=== PATIENT | female | born 1970 | race Caucasian/White ===

== ENCOUNTER → 2016-07-02 | Outpatient (CLI) | payer OTHER ==
--- NOTE | 2016-07-02 09:29 | KCIC ---
CT sinus without contrast Indication: Chronic sinusitis. Axial imaging through the paranasal sinuses was performed without contrast. Sagittal and coronal reformations were also performed. PQRS STATEMENT One or more of the following individualized dose reduction techniques were utilized for this study: 1.Automated exposure control. 2.Adjustment of the mA and/orkVaccording to patient size. 3.Use of iterative reconstruction technique. No prior studies are available for comparison. The frontal sinuses are clear. Ethmoid air cells and sphenoid sinus are clear. Trace mucosal thickening of bilateral maxillary sinuses is noted. There are no air-fluid levels. The ostiomeatal complexes are patent bilaterally. There is slight nasal septal deviation towards the right. The mastoid air cells are clear. Impression: Mild maxillary sinus mucosal disease. The study is otherwise unremarkable. Electronically signed by: Roberto Gabriel MD (Jul 02, 2016 09:27:59)
== END | disposition home or self-care (01) ==
LOC: KCIC CT 08:46
PROVIDERS: ATTEND Otolaryngology
DX: J32.9 Chronic sinusitis, unspecified (principal)
CPT/HCPCS: 70486

== ENCOUNTER → 2017-03-10 | Outpatient (CLI) | payer OTHER ==
[2016-09-29 11:00] VITALS: BP 126/78
[~2017-03-10] MED LIST: CETI10TA22 PO; CIPR500T94 PO; FLUT9.9S NS; METR500T PO; MULT1TAB52 PO
--- NOTE | 2017-03-11 09:12 | KCIC ---
DATE: 03/10/2017 EXAM: MAMMO TRAVON SCREENING BILATERAL HISTORY: Routine screening. COMPARISON: 10/03/2015 and 01/30/2012. This study was interpreted with the benefit of Computerized Aided Detection (CAD). FINDINGS: The parenchymal pattern is stable. Benign vascular and parenchymal calcifications are noted. No spiculated mass or malignant appearing microcalcifications are seen. Breast Density: HETERO The breast parenchyma is heterogeneously dense, which could reduce sensitivity of mammography. Breast parenchyma level C. IMPRESSION: No mammographic features suspicious for malignancy are identified. BI-RADS CATEGORY: 2 BENIGN FINDING(S) RECOMMENDED FOLLOW-UP: 12M 12 MONTH FOLLOW-UP PQRS compliance statement: Patient information was entered into a reminder system with a target due date 03/10/2018 for the next mammogram. Mammography is a sensitive method for finding small breast cancers, but it does not detect them all and is not a substitute for careful clinical examination. A negative mammogram does not negate a clinically suspicious finding and should not result in delay in biopsying a clinically suspicious abnormality. "Our facility is accredited by the [employer] Mammography Program."
== END | disposition home or self-care (01) ==
LOC: KCIC MAMMO 17:57
PROVIDERS: ATTEND Nurse Practitioner Family
DX: Z12.31 Encounter for screening mammogram for malignant neoplasm of breast (principal)
CPT/HCPCS: 77063; G0202; 77067

== ENCOUNTER → 2017-10-15 | Outpatient (CLI) | payer OTHER | END | disposition home or self-care (01) | LOC: US 09:06 | DX: R10.2 Pelvic and perineal pain (principal); J32.9 Chronic sinusitis, unspecified | CPT/HCPCS: 76830; 76856 ==

== ENCOUNTER → 2018-07-08 | Outpatient (CLI) | payer OTHER ==
[2016-09-29 11:00] VITALS: BP 126/78
--- NOTE | 2018-07-08 14:46 | KCIC ---
MR of the left knee HISTORY: Left knee pain with weightbearing at the joint line. Pain for 3 months after episode of prolonged activity. TECHNIQUE: Routine multiplanar sequences are obtained. FINDINGS: No evidence of medial meniscal tear. No evidence of lateral meniscal tear. Anterior and posterior cruciate ligaments are intact. Mild fluid tracking along the medial collateral ligament, which appears intrinsically intact. Iliotibial band unremarkable. Fibular collateral ligament, biceps femoris tendon and popliteus tendon are intact. Extensor mechanism intact. Trace joint effusion. Mild chondromalacia at the medial patella. Medial and lateral compartment articular cartilage appears intact. Minimal subchondral marrow edema at the medial joint. No aggressive bone destruction. No acute fracture. Small Medina's cyst. Small cyst or ganglion identified along the posterior medial femoral metaphysis, around the medial gastrocnemius tendon insertion. IMPRESSION: 1. No meniscal tear or internal derangement. 2. Mild chondromalacia of the patella. 3. Minimal subchondral marrow edema at the medial joint, likely degenerative, could represent small marrow contusions. 4. Mild edema/fluid along the medial knee. Electronically signed by: Chad Zepeda MD (07/08/2018 2:43 PM) [facility]
--- NOTE | 2018-07-08 19:24 | KCIC ---
Bilateral digital screening mammograms with 3-D tomosynthesis: Reason for examination: Routine screening. Comparison is made to previous studies dated 03/10/2017 and 10/03/2015. Bilateral mammograms in CC and oblique projections were obtained with 2-D imaging and 3-D tomosynthesis imaging on a Siemens Inspiration unit and reviewed on the workstation. Interpretation was made with the benefit of CAD. The skin and nipples show no abnormalities. No abnormal axillary lymph nodes are seen. The breast parenchyma shows scattered fatty and fibroglandular density. (Breast density: Category B.) There are no dominant masses, suspicious calcifications or architectural distortion. Impression: No evidence of malignancy. Recommend routine screening. BI-RAD Category 1: Negative. "Our facility is accredited by the [employer] Mammography Program." This patient's information has been entered into a reminder system for the patient to be notified with the results of her examination and a target date for the next mammogram. Electronically signed by: Nika River MD (07/08/2018 7:21 PM) [id number]
== END | disposition home or self-care (01) ==
LOC: KCIC MRI 13:50
PROVIDERS: ATTEND Nurse Practitioner Family
DX: Z12.31 Encounter for screening mammogram for malignant neoplasm of breast (principal); M22.42 Chondromalacia patellae, left knee; M71.22 Synovial cyst of popliteal space [Baker], left knee; R60.0 Localized edema
CPT/HCPCS: 73721; 77063; 77067

== ENCOUNTER → 2019-01-22 | Outpatient (CLI) | payer OTHER ==
[2016-09-29 11:00] VITALS: BP 126/78
[~2019-01-22] MED LIST changes: +ALBU2.5V8 IH; +GADOTERATE 7.5 MMOL/15ML VIAL. IVP ONE; +HYDR12.58 PO
--- NOTE | 2019-01-22 13:25 | KCIC ---
EXAMINATION: Magnetic resonance imaging (MRI) of the brain and brainstem with and without contrast with dedicated views of the Temporal Bones and Internal Auditory Canals (IACs) DATE: 01/22/2019 10:15 AM INDICATION: Dizziness. Meniere's disease. Vertigo. Tinnitus. Headaches. TECHNIQUE: Multiplanar, multisequence MR images were performed with and without contrast. Multiple T1 + T2 weighted images were obtained through temporal bone and IACs. 3D fiesta T2 weighted images were also obtained and reconstructed in coronal and sagittal planes. 14 cc of Dotarem contrast was given intravenously. COMPARISON: None. FINDINGS: Both 7th and 8th nerve complexes are well visualized and normal. No mass within the internal auditory canal or cerebellopontine angle. The cochlear forms are normal with normal fluid signal within cochlea. The semicircular canals are normal. No abnormal enhancement. No acute infarction. No acute or chronic hemorrhage. The ventricles are normal in size and position without hydrocephalus. The scalp and calvarium are normal. The pituitary and sella are normal. No Chiari malformation. The visualized upper cervical spine is normal. The visualized portions of the orbits, mastoids and paranasal sinuses are normal. Normal flow voids in the distal internal carotid and basilar arteries indicate patency. IMPRESSION: Normal MRI of the internal auditory canals. No mass or abnormal enhancement. Electronically signed by: Anirudh Alex MD (01/22/2019 1:23 PM) [id number]
== END | disposition home or self-care (01) ==
LOC: KCIC MRI 09:50
PROVIDERS: ATTEND Otolaryngology
DX: R42 Dizziness and giddiness (principal); J44.9 Chronic obstructive pulmonary disease, unspecified; I10 Essential (primary) hypertension
CPT/HCPCS: 70553; A9575